=== PATIENT | male | born 1955 | race Caucasian/White ===

== ENCOUNTER 2018-02-07 09:30 | Observation (INO) | payer OTHER ==
[2018-02-07 10:01] LABS: ADD MAN DIFF? NO
[2018-02-07 10:10] LABS: WHITE BLOOD COUNT 9.9 10^3/ul (4.8-10.8)
[2018-02-07 10:10] LABS: BASOPHILS % 0.2 % (0.0-2.0); EOSINOPHILS # 0.1 10^3/ul (0.0-0.5); HEMATOCRIT 30.4 % (42.0-52.0); HEMOGLOBIN 9.3 g/dl (14.0-18.0); LYMPHOCYTES # 1.3 10^3/ul (0.8-2.9); LYMPHOCYTES % 13.2 % (15.0-51.0); MEAN CORPUSCULAR HEMOGLOBIN 25.9 pg (29.0-33.0); MEAN CORPUSCULAR HGB CONC 30.6 g/dl (32.0-37.0); MEAN CORPUSCULAR VOLUME 84.7 fl (82.0-101.0); MEAN PLATELET VOLUME 9.2 fl (7.4-10.4); MONOCYTE # 0.7 10^3/ul (0.3-0.9); MONOCYTES % 7.2 % (0.0-11.0); NEUTROPHIL # 7.7 10^3/ul (1.6-7.5); PLATELET COUNT 325 10^3/UL (140-415); RED BLOOD COUNT 3.59 10^6/ul (4.70-6.10); RED CELL DISTRIBUTION WIDTH 14.9 % (11.5-14.5)
[2018-02-07 11:10] LABS: ANION GAP 15 (8-16); BLOOD UREA NITROGEN 14 mg/dl (7-20); CALCIUM 8.8 mg/dl (8.4-10.2); CARBON DIOXIDE 34 mmol/L (21-31); CHLORIDE 102 mmol/L (97-110); CREATININE 0.63 mg/dl (0.61-1.24); GLUCOSE 110 mg/dl (70-220); POTASSIUM 3.2 mmol/L (3.5-5.1); SODIUM 148 mmol/L (135-144)
[2018-02-07 11:24] LABS: TROPONIN-I < 0.012 ng/ml (0.00-0.12)
[2018-02-07 13:22] LABS: CREATINE KINASE 43 IU/L (23-200)
[2018-02-07 13:35] LABS: CK INDEX 0.5
[2018-02-07 13:36] LABS: CK-MB < 0.22 ng/ml (0.0-2.4); TROPONIN-I < 0.012 ng/ml (0.00-0.12)
[2018-02-07] MEDS ORDERED: ONDANSETRON 4 MG INJ IV (14:00)
[2018-02-07] MEDS ORDERED: ACETAMINOPHEN 325 MG TAB PO (14:00)
[2018-02-07] MEDS ORDERED: GLUCOSE GEL 15 GRAM TUBE BUCCAL (14:00)
[2018-02-07] MEDS ORDERED: GLUCAGON 1 MG INJ IM (14:00)
[2018-02-07] MEDS ORDERED: NACL 0.9% 3 ML SYG IV (14:00)
[2018-02-07] MEDS ORDERED: GLUCOSE GEL 15 GRAM TUBE PO ×2 (14:00)
[2018-02-07] MEDS ORDERED: DEXTROSE 50% 50 ML SYRINGE IV ×2 (14:00)
[2018-02-07] MEDS ORDERED: HYDROCODONE/APAP (5/325) TAB PO (14:00)
[2018-02-07] MEDS ORDERED: NITROGLYCERIN (SL) 0.4 MG TAB SL (14:30)
[2018-02-07] MEDS: SOD CHLORIDE 0.9% 1,000 ML IV (14:34)
[2018-02-07] MEDS ORDERED: LEVALBUTEROL (NEB) 0.63 MG/3 ML AMP HHN (16:00)
[2018-02-07] MEDS: INSULIN ASPART [NOVOLOG] 3 ML PEN SC ×2 (17:17→21:00)
[2018-02-07] MEDS ORDERED: NON-FORMULARY/PATIENT OWN MED (Rosuvastatin Calcium* (Crestor*) 10 MG) PO (21:00)
[2018-02-07] MEDS: METOPROLOL 100 MG TAB PO (21:20)
[2018-02-07] MEDS: FAMOTIDINE 20 MG TAB PO (21:20)
[2018-02-07] MEDS: QUETIAPINE 100 MG TAB PO (21:21)
[2018-02-07] MEDS: RISPERIDONE 1 MG TAB PO (21:21)
[2018-02-07] MEDS: ATORVASTATIN 40 MG TAB PO (21:21)
[2018-02-07] MEDS: DIVALPROEX (ER) 500 MG TAB PO (21:21)
[2018-02-08] MEDS: ACCU-CHEK XX (02:00)
[2018-02-08] MEDS: SOD CHLORIDE 0.9% 1,000 ML IV ×4 (03:20→20:55)
[2018-02-08] MEDS: FUROSEMIDE 20 MG TAB PO (05:41)
[2018-02-08 06:10] LABS: ADD MAN DIFF? NO
[2018-02-08 06:27] LABS: BASOPHILS % 0.3 % (0.0-2.0); EOSINOPHILS # 0.1 10^3/ul (0.0-0.5); EOSINOPHILS % 1.2 % (0.0-7.0); HEMATOCRIT 30.7 % (42.0-52.0); HEMOGLOBIN 9.6 g/dl (14.0-18.0); LYMPHOCYTES # 1.5 10^3/ul (0.8-2.9); LYMPHOCYTES % 16.2 % (15.0-51.0); MEAN CORPUSCULAR HGB CONC 31.3 g/dl (32.0-37.0); MEAN CORPUSCULAR VOLUME 83.2 fl (82.0-101.0); MEAN PLATELET VOLUME 9.4 fl (7.4-10.4); MONOCYTE # 0.8 10^3/ul (0.3-0.9); MONOCYTES % 9.3 % (0.0-11.0); NEUTROPHIL # 6.5 10^3/ul (1.6-7.5); NEUTROPHILS % 72.7 % (39.0-77.0); PLATELET COUNT 334 10^3/UL (140-415); RED BLOOD COUNT 3.69 10^6/ul (4.70-6.10)
[2018-02-08 06:51] LABS: HEMOGLOBIN A1C 5.3 % (0-5.9)
[2018-02-08 06:51] LABS: ALANINE AMINOTRANSFERASE 17 IU/L (13-69); ALBUMIN 3.1 g/dl (3.3-4.9); ALBUMIN/GLOBULIN RATIO 0.88; ALKALINE PHOSPHATASE 68 IU/L (42-121); ANION GAP 13 (8-16); BLOOD UREA NITROGEN 11 mg/dl (7-20); CARBON DIOXIDE 34 mmol/L (21-31); CHLORIDE 103 mmol/L (97-110); CHOL/HDL RATIO 3.8 RATIO; CHOLESTEROL 109 mg/dl (100-200); CREATININE 0.68 mg/dl (0.61-1.24); GLUCOSE 103 mg/dl (70-220); HDL CHOLESTEROL 28 mg/dl (30-78); LDL CHOLESTEROL,CALCULATED 63 mg/dl; MAGNESIUM 1.8 mg/dl (1.7-2.5); PHOSPHORUS 3.3 mg/dl (2.5-4.9); POTASSIUM 3.7 mmol/L (3.5-5.1); SODIUM 146 mmol/L (135-144); TOTAL PROTEIN 6.6 g/dl (6.1-8.1); TRIGLYCERIDES 90 mg/dl (0-149)
[2018-02-08 07:35] LABS: ASPARTATE AMINO TRANSFERASE 10 IU/L (15-46)
[2018-02-08] MEDS: INSULIN ASPART [NOVOLOG] 3 ML PEN SC ×4 (07:35→21:00)
[2018-02-08] MEDS ORDERED: NON-FORMULARY/PATIENT OWN MED (Sitagliptin* (Januvia*) 50 MG) PO (09:00)
[2018-02-08] MEDS ORDERED: [UNRECOGNIZED DRUG - OTHER] PO (09:00)
[2018-02-08] MEDS ORDERED: AMLODIPINE BES PO (09:00)
[2018-02-08] MEDS ORDERED: OLMESARTAN MED PO (09:00)
[2018-02-08] MEDS: FAMOTIDINE 20 MG TAB PO ×2 (10:24→20:59)
[2018-02-08] MEDS: BUPROPION (SR) 150 MG TAB PO (10:24)
[2018-02-08] MEDS: ASPIRIN 81 MG TAB PO (10:24)
[2018-02-08] MEDS: LOSARTAN 50 MG TAB PO (10:25)
[2018-02-08] MEDS: ESCITALOPRAM 10 MG TAB PO (10:26)
[2018-02-08] MEDS: METOPROLOL 100 MG TAB PO ×2 (10:26→20:59)
[2018-02-08] MEDS: AMLODIPINE 10 MG TAB PO (10:26)
[2018-02-08] MEDS: LINAGLIPTIN 5 MG TABLET PO (10:27)
[2018-02-08] MEDS: RISPERIDONE 1 MG TAB PO (20:58)
[2018-02-08] MEDS: DIVALPROEX (ER) 500 MG TAB PO (20:58)
[2018-02-08] MEDS: QUETIAPINE 100 MG TAB PO (20:59)
[2018-02-08] MEDS: ATORVASTATIN 40 MG TAB PO (21:50)
[2018-02-09] MEDS: ACCU-CHEK XX (02:00)
[2018-02-09] MEDS: FUROSEMIDE 20 MG TAB PO (05:42)
[2018-02-09] MEDS: INSULIN ASPART [NOVOLOG] 3 ML PEN SC ×2 (08:45→11:45)
[2018-02-09] MEDS: LINAGLIPTIN 5 MG TABLET PO (09:09)
[2018-02-09] MEDS: SOD CHLORIDE 0.9% 1,000 ML IV (09:09)
[2018-02-09] MEDS: FAMOTIDINE 20 MG TAB PO (09:10)
[2018-02-09] MEDS: METOPROLOL 100 MG TAB PO (09:10)
[2018-02-09] MEDS: ESCITALOPRAM 10 MG TAB PO (09:10)
[2018-02-09] MEDS: AMLODIPINE 10 MG TAB PO (09:10)
[2018-02-09] MEDS: BUPROPION (SR) 150 MG TAB PO (09:10)
[2018-02-09] MEDS: ASPIRIN 81 MG TAB PO (09:11)
[2018-02-09] MEDS: LOSARTAN 50 MG TAB PO (09:11)
== END 2018-02-09 13:35 | disposition home or self-care (01) ==
LOC: E/R 09:30 → MS3 12:17
DX: G40.89 Other seizures (principal); G47.30 Sleep apnea, unspecified; I10 Essential (primary) hypertension; E78.5 Hyperlipidemia, unspecified; E11.9 Type 2 diabetes mellitus without complications; N28.89 Other specified disorders of kidney and ureter; D64.9 Anemia, unspecified; F20.9 Schizophrenia, unspecified; E78.00 Pure hypercholesterolemia, unspecified; F03.90 Unspecified dementia, unspecified severity, without behavioral disturbance, psychotic disturbance, mood disturbance, and anxiety; Z87.891 Personal history of nicotine dependence
CPT/HCPCS: 36415; 70553; 71045; 78451; 80048; 80053; 80061; 82550; 82553; 82962; 83036; 83735; 84100; 84443; 84484; 85025; 93005; 93306; 93880; 95819; 99285-25